=== PATIENT | male | born 1985 | race Two or more races ===

== ENCOUNTER 2016-06-27 17:54 | Emergency (ER) | payer OTHER ==
[2016-06-27] MEDS ORDERED: ONDANSETRON 4 MG/2ML 2 ML VIAL ONE (18:55)
[2016-06-27] MEDS ORDERED: KETOROLAC TROMETHAMINE 30 MG/ML 1 ML VIAL ONE (18:55)
[2016-06-27 19:23] LABS: ABSOLUTE NEUTROPHIL COUNT 7.6 K/mm3 (1.8-7.7); BASO % 0.4 % (0.2-1.0); EOS # 0.2 (0.0-0.5); EOS % 1.3 % (0.9-2.9); HEMATOCRIT 46.1 % (32.0-52.0); HEMOGLOBIN 15.3 gm/l (14.0-18.0); IMM NEUT # 0.1 K/mm3 (0-0.2); IMM NEUT% 0.8 % (0-1); LYMPH # 2.5 (1.0-4.8); LYMPH % 22.1 % (15-45); MEAN CELL VOLUME 86.2 fl (80.0-94.0); MEAN CORPUSCULAR HEMOGLOBIN 28.6 pg (27.0-31.0); MEAN CORPUSCULAR HGB CONC 33.2 g/dl (33.0-37.0); MEAN PLATELET VOLUME 9.8 fl (7.4-10.4); MONO # 0.9 (0.0-0.8); MONO % 8.1 % (4-12); NEUT % 67.3 % (43-75); PLATELET COUNT 334 K/mm3 (130-400); RED CELL DISTRIBUTION WIDTH 12.6 % (11.5-14.5)
[2016-06-27 19:24] LABS: ALB/GLOB RATIO 1.3 (>1.0); ALBUMIN 4.4 gm/dL (3.5-5.7); CALCIUM 9.6 mg/dL (8.6-10.3)
--- NOTE | 2016-06-27 19:36 | CT ---
Examination: Noncontrast CT scans of the Abdomen and Pelvis Clinical indication: Left flank pain for 2 days Comparison:None Technique: Multidetector CT scanner was utilized. No oral or intravenous contrast was administered. Axial images were acquired from just above the domes of the diaphragm to the iliac crest. A CT scan of the pelvis was carried out from the iliac crest to the initial tuberosities. Sagittal, axial and coronal stacked 5 mm images were reviewed. Findings: Abdomen CT (noncontrast): The lung bases are clear and are without mass or pleural effusion. The liver is unremarkable. The gallbladder is within normal limits. There is no evidence of biliary obstruction. The spleen size and attenuation are within normal limits. The pancreas is normal in size and contours. No inflammatory stranding is identified. The pancreatic duct is unremarkable. The adrenals are unremarkable. There is right nephrolithiasis. There is are 2 2 mm calculi in the upper pole right kidney. In the lower pole there is a punctate calcifications well. The left kidney exhibits no mass or discernible nephrolithiasis. There is no hydronephrosis or hydroureter. The abdominal aorta unremarkable. There is no retroperitoneal adenopathy identified. There is inflammatory stranding of the proximal descending colon near the splenic flexure. There is some stranding of the fascia anterior to the left kidney. There is no evidence of perforation or abscess. The osseous structures exhibit no displaced fracture. No lytic or blastic lesions are identified. Pelvic CT findings (noncontrast): The distal ureters and bladder are unremarkable. The prostate is normal in size. No adenopathy is identified. The distal abdominal aorta and iliac vessels are within normal limits. There is proximal sigmoid diverticuli. There is no evidence of obstruction. No inflammatory stranding is seen within the pelvis. There is no free fluid. The appendix is unremarkable. No displaced fractures are identified. There are no gross osteolytic or blastic lesions. There are fat-containing bilateral inguinal hernias. IMPRESSION: 1. Moderate inflammatory stranding and mucosal thickening involving the proximal descending colon at the splenic flexure. This is just anterior to the left kidney. Findings maybe a reflection of diverticulitis/focal colitis. However the amount of stranding does raise the question of inflammatory bowel disease. There is no perforation or abscess. 2. Diverticuli involving the descending colon/proximal sigmoid distribution. 3. Normal appendix. 4. Nonobstructive right nephrolithiasis. The findings were uploaded to the electronic medical record for review at approximately 7:35 PM 06/27/2016
[2016-06-27 20:25] LABS: URINE BILIRUBIN NEGATIVE (NEGATIVE); URINE BLOOD NEGATIVE (NEGATIVE); URINE GLUCOSE (UA) NEGATIVE (NEGATIVE); URINE LEUKOCYTE ESTERASE NEGATIVE (NEGATIVE); URINE NITRITE NEGATIVE (NEGATIVE); URINE PROTEIN NEGATIVE (NEGATIVE); URINE UROBILINOGEN NORMAL (0-1 mg/dl)
[2016-06-27 20:27] LABS: URINE APPEARANCE CLEAR; URINE COLOR YELLOW
[2016-06-29 15:13] LABS: CHLAMYDIA BD Negative (Negative); N.GONORRHOEAE BD Negative (Negative); SOURCE Urine (())
== END 2016-06-27 20:14 | disposition home or self-care (01) ==
LOC: ED 17:54
DX: K52.9 Noninfective gastroenteritis and colitis, unspecified (principal); R10.32 Left lower quadrant pain; N50.812 Left testicular pain
CPT/HCPCS: 87491; 87591; 85025; 80053; 81003; 74176; 96375; 99283 ×2; 96374; J1885; J2405